=== PATIENT | male | born 1950 | race African-American/Black ===

== ENCOUNTER → 2016-08-31 | Outpatient (CLI) | payer MEDICARE ==
--- NOTE | 2016-08-31 14:10 | RADIOLOGY REPORT (SQ) ---
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 RADIONUCLIDE AND DOSE: 2.0 millicuries Tc-99m Sulfur Colloid mixed with scrambled egg and ingested b y the patient TECHNIQUE: Serial images acquired to 180 minutes with each image recorded over a 30 minute time fra me. Image intensity values plotted with respect to time with linear regression algorithm. LIMITATIONS: Patient did not stay for the 4 hour images FINDINGS: Patient was observed for 4 hours. Gastric emptying at 60 minutes was 57%. Gastric emptying at 90 minutes was 71%. Gastric emptying at 120 minutes was 79% Gastric emptying at 180 minutes with 89% IMPRESSION: NORMAL GASTRIC EMPTYING. TECHNICAL DOCUMENTATION: JOB ID: [id number] All Rights Reserved
== END ==
LOC: RAD 07:46
PROVIDERS: ATTEND Internal Medicine Geriatric Medicine
DX: E11.43 Type 2 diabetes mellitus with diabetic autonomic (poly)neuropathy (principal)
CPT/HCPCS: 78264; A9541